=== PATIENT | male | born 1965 | race African-American/Black ===

== ENCOUNTER 2020-02-17 14:09 | Inpatient (IN) | payer OTHER ==
[~2020-02-17] VITALS: Ht 195.6 cm; Wt 114.8 kg
[2020-02-17] MEDS ORDERED: methylPREDNISolone SOD SUCC 125 MG/2 ML VL IV ONE (14:30)
[2020-02-17 15:37] LABS: Basophils # (auto) 0 10 ^3/uL (0-0.2); Eosinophils # (auto) 0.1 10 ^3/uL (0-0.8); Eosinophils % (auto) 1.2 % (0.0-7.0); Hematocrit 38.3 % (41.0-53.0); Hemoglobin 12.5 g/dL (13.5-17.5); Lymphocytes # (auto) 1.7 10 ^3/uL (0.4-5.4); Lymphocytes % (auto) 33.8 % (10.0-50.0); Mean Corpuscular Hemoglobin 28.5 pg (28.0-32.0); Mean Corpuscular Hgb Conc. 32.6 g/dL (32.0-36.0); Mean Corpuscular Volume 87.2 fL (80.0-100.0); Monocytes # (auto) 0.9 10 ^3/uL (0-1.3); Monocytes % (auto) 16.9 % (0.0-12.0); Neutrophils # (auto) 2.4 10 ^3/uL (1.6-8.6); Neutrophils % (auto) 47.1 % (37.0-80.0); Nucleated Red Blood Cells % 0.1 %; Platelet Count (auto) 251 10^3/uL (140-450); Red Blood Cells 4.39 10^6/uL (4.5-5.90); Red Cell Distribution Width 13.5 % (11.8-14.3); White Blood Cell 5.2 10^3/uL (4.4-10.8)
[2020-02-17] MEDS ORDERED: AZITHROMYCIN 500MG/ 250ML 250 ML IV ONE (15:45)
[2020-02-17 16:01] LABS: Chloride 105 mmol/L (98-107); Sodium 138 mmol/L (136-145)
[2020-02-17 16:12] LABS: Alanine Aminotransferase 22 U/L (16-61); Albumin 2.7 g/dL (3.4-5.0); Alkaline Phosphatase 65 U/L (45-117); Anion Gap 4 (5-15); Aspartate Aminotransferase 13 U/L (15-37); Bilirubin, Total 0.5 mg/dL (0.2-1.0); Blood Urea Nitrogen 18 mg/dL (7-18); Calcium 8.5 mg/dL (8.5-10.1); Carbon Dioxide 29 mmol/L (21-32); GFR African American 74 mL/min; GFR Non-African American 61 mL/min; Glucose 214 mg/dL (74-106); Total Protein 7.2 g/dL (6.4-8.2)
[2020-02-17] MEDS ORDERED: ACETAMINOPHEN 325 MG TAB PO PRN ×2 (17:00)
[2020-02-17] MEDS ORDERED: MORPHINE SULF INJ 2 MG/ML SYRINGE 1ML IV PRN (17:00)
[2020-02-17] MEDS ORDERED: ACCU-CHEK COMFORT CURVE STRIP VI ONE (17:00)
[2020-02-17] MEDS ORDERED: NITROGLYCERIN 0.4 MG SL TAB SL PRN (17:00)
[2020-02-17] MEDS ORDERED: DEXTROSE (50%) 50ML SYRG IV ONE (17:00)
[2020-02-17] MEDS ORDERED: ALBUTEROL SULF HFA 90MCG INH 200DOSE IN PRN (17:00)
[2020-02-17] MEDS: InsuLIN REG 1unit/0.01ml Soln (100units/ml) SC SCH ×2 (18:38→22:00)
[2020-02-17 20:35] VITALS: BP 153/91
[2020-02-17] MEDS: ASCORBIC ACID 500 MG TAB PO SCH (22:28)
[2020-02-18] VITALS: BP 153/91
[2020-02-18] MEDS ORDERED: METF-370 PO (00:58)
[2020-02-18] MEDS ORDERED: MIRT1TAB40 PO (01:38)
[2020-02-18] MEDS: InsuLIN REG 1unit/0.01ml Soln (100units/ml) SC SCH ×4 (06:10→21:59)
[2020-02-18 08:00] VITALS: BP 150/78
[2020-02-18] MEDS: ZINC SULFATE 220mg CAP or TAB PO SCH (09:32)
[2020-02-18] MEDS: cefTRIAXone 1GM/50ML D5W 50 ML IV SCH (09:32)
[2020-02-18] MEDS: ASCORBIC ACID 500 MG TAB PO SCH ×2 (09:33→21:23)
[2020-02-18] MEDS: CHOLECALCIFEROL (VITD3) 2,000 UNIT CAP PO SCH (09:33)
[2020-02-18] MEDS: DexAMETHasone 4 MG TAB PO SCH (09:33)
[2020-02-18] MEDS: AZITHROMYCIN 250 MG TAB PO SCH (09:34)
[2020-02-18] MEDS ORDERED: ENOXAPARIN SOD 40 MG/0.4 ML SYRINGE SC ONE (12:30)
[2020-02-18 15:59] VITALS: BP 147/87
[2020-02-18 22:00] VITALS: BP 133/103
[2020-02-19] VITALS: BP 133/103
[2020-02-19 05:29] VITALS: BP 127/81
[2020-02-19] MEDS: InsuLIN REG 1unit/0.01ml Soln (100units/ml) SC SCH ×3 (06:16→16:42)
[2020-02-19 08:00] VITALS: BP 127/82
[2020-02-19] MEDS: cefTRIAXone 1GM/50ML D5W 50 ML IV SCH (09:12)
[2020-02-19] MEDS: CHOLECALCIFEROL (VITD3) 2,000 UNIT CAP PO SCH (09:13)
[2020-02-19] MEDS: ZINC SULFATE 220mg CAP or TAB PO SCH (09:13)
[2020-02-19] MEDS: AZITHROMYCIN 250 MG TAB PO SCH (09:13)
[2020-02-19] MEDS: ASCORBIC ACID 500 MG TAB PO SCH (09:13)
[2020-02-19] MEDS: DexAMETHasone 4 MG TAB PO SCH (09:13)
[2020-02-19] MEDS ORDERED: ENOXAPARIN SOD 40 MG/0.4 ML SYRINGE SC SCH (10:00)
[2020-02-19 12:00] VITALS: BP 124/87
[2020-02-19] MEDS ORDERED: PRED20TA2 PO (13:54)
[2020-02-19] MEDS ORDERED: AZIT250T9 PO (13:54)
[2020-02-19 15:56] VITALS: BP 126/85
[2020-02-19 16:46] VITALS: BP 126/85
== END 2020-02-19 17:30 | DRG 194 ==
LOC: EEVIPCON 14:09 → ER 14:09 → OVERFLOW 17:12 → WEST WING 20:35 → CENTRAL 02-18 17:55
PROVIDERS: ADMIT Internal Medicine; ATTEND Internal Medicine
DX: J12.9 Viral pneumonia, unspecified (principal); E44.1 Mild protein-calorie malnutrition; E11.9 Type 2 diabetes mellitus without complications; F12.90 Cannabis use, unspecified, uncomplicated; I10 Essential (primary) hypertension; J45.909 Unspecified asthma, uncomplicated; Z86.16 Personal history of COVID-19; Z20.822 Contact with and (suspected) exposure to COVID-19
CPT/HCPCS: 36415; 71045; 80053; 82728; 82962; 83605; 83880; 84484; 85025; 85379; 86141; 87040; 87426; 93005; 96365; 96375; 99291; G0378; J0696; J1815